=== PATIENT | female | born 2005 | race Caucasian/White ===

== ENCOUNTER → 2024-05-06 09:48 | Outpatient (REF) | payer BC, SELFPAY | LOC: RAD 09:48 | PROVIDERS: ATTENDING PHYSICIAN Internal Medicine; FAMILY PHYSICIAN Nurse Practitioner Adult Health | DX: R14.0 Abdominal distension (gaseous) (principal); R10.30 Lower abdominal pain, unspecified | CPT/HCPCS: 74019 ==